=== PATIENT | male | born 1985 | race Caucasian/White ===

== ENCOUNTER 2019-02-06 08:32 | Emergency (ER) | payer MEDICAID ==
[2019-02-06] MEDS: HYDROCODONE/APAP (5/325) TAB PO (08:57)
== END 2019-02-06 10:32 | disposition home or self-care (01) ==
LOC: E/R 08:32
DX: S13.4XXA Sprain of ligaments of cervical spine, initial encounter (principal); S63.502A Unspecified sprain of left wrist, initial encounter; F17.210 Nicotine dependence, cigarettes, uncomplicated; V89.2XXA Person injured in unspecified motor-vehicle accident, traffic, initial encounter
CPT/HCPCS: 72040; 73090; 99284-25